=== PATIENT | female | born 1940 | race Caucasian/White ===

== ENCOUNTER 2018-03-21 17:34 | Emergency (ER) | payer OTHER ==
[~2018-03-21] VITALS: Ht 152.4 cm; Wt 57.2 kg
[~2018-03-21 17:34] MED LIST: AVALIDE 150/12.1 TAB PO; BACTROBAN22 GM TP; CARDIZEM CD240 MG; CIPRO500 MG PO; IRBESARTAN-HCT1 EACH; METRONIDAZOLE500 MG PO; SINGULAIR 10MG10 MG PO; TRAMADOL HCL-AP1 TAB PO; ULTRAM50 MG PO; ZANTAC300 MG PO; [UNRECOGNIZED DRUG - OTHER] PO
[2018-03-21] MEDS ORDERED: AVALIDE 300-121 EACH (17:56)
[2018-03-21] MEDS ORDERED: PENTOXIFYLLINE400 MG (17:57)
[2018-03-21] MEDS ORDERED: ZANTAC300 MG (17:57)
[2018-03-21] MEDS ORDERED: PROTONIX20 MG (17:57)
== END 2018-03-22 17:14 | disposition home or self-care (01) ==
LOC: ER 17:34
DX: M25.561 Pain in right knee (principal)

== ENCOUNTER → 2018-06-24 | Emergency (ER) | payer OTHER ==
[~2018-06-24] VITALS: Ht 152.4 cm; Wt 77.1 kg
[~2018-06-24] MED LIST changes: +AVALIDE 300-121 EACH; +PENTOXIFYLLINE400 MG; +PROTONIX20 MG; +ZANTAC300 MG
== END | disposition home or self-care (01) ==
LOC: ER 13:28
DX: K57.32 Diverticulitis of large intestine without perforation or abscess without bleeding (principal); M54.89 Other dorsalgia

== ENCOUNTER 2018-06-26 14:55 | Inpatient (IN) | payer OTHER ==
[~2018-06-26] VITALS: Ht 152.4 cm; Wt 72.6 kg
== END 2018-07-03 16:22 | disposition home or self-care (01) | DRG 392 ==
LOC: ER 14:55 → SURH 06-27 09:57 → SEC-K 06-27 09:57 → SURG 06-27 16:07 → SURH 06-27 17:54
PROVIDERS: ADMIT Internal Medicine
DX: K57.32 Diverticulitis of large intestine without perforation or abscess without bleeding (principal); N39.0 Urinary tract infection, site not specified; L02.413 Cutaneous abscess of right upper limb; E86.0 Dehydration; I10 Essential (primary) hypertension; N36.41 Hypermobility of urethra; R63.0 Anorexia; D63.8 Anemia in other chronic diseases classified elsewhere; J03.80 Acute tonsillitis due to other specified organisms; E87.8 Other disorders of electrolyte and fluid balance, not elsewhere classified; Z88.0 Allergy status to penicillin; Z88.6 Allergy status to analgesic agent; Z88.2 Allergy status to sulfonamides

== ENCOUNTER 2019-05-15 15:10 | Emergency (ER) | payer OTHER ==
[~2019-05-15] VITALS: Ht 152.4 cm; Wt 72.6 kg
== END 2019-05-15 19:58 | disposition home or self-care (01) ==
LOC: ER 15:10
DX: B34.9 Viral infection, unspecified (principal)

== ENCOUNTER 2020-06-28 11:43 | Emergency (ER) | payer OTHER ==
[~2020-06-28] VITALS: Ht 152.4 cm; Wt 72.6 kg
[2020-06-28] MEDS ORDERED: HYDROCHLOROTH12.5 MG PO (11:52)
== END 2020-06-28 14:27 | disposition home or self-care (01) ==
LOC: ER 11:43
DX: S80.02XA Contusion of left knee, initial encounter (principal); S80.01XA Contusion of right knee, initial encounter; S40.012A Contusion of left shoulder, initial encounter; W18.39XA Other fall on same level, initial encounter; Y93.89 Activity, other specified; Y92.69 Other specified industrial and construction area as the place of occurrence of the external cause; Y99.8 Other external cause status

== ENCOUNTER 2020-08-05 17:08 | Emergency (ER) | payer OTHER ==
[~2020-08-05] VITALS: Ht 152.4 cm; Wt 72.6 kg
[~2020-08-05 17:08] MED LIST changes: +HYDROCHLOROTH12.5 MG PO
== END 2020-08-05 20:49 | disposition home or self-care (01) ==
LOC: ER 17:08
DX: R53.81 Other malaise (principal); R50.83 Postvaccination fever; T50.B95A Adverse effect of other viral vaccines, initial encounter; Y92.89 Other specified places as the place of occurrence of the external cause

== ENCOUNTER 2020-12-04 18:45 | Emergency (ER) | payer OTHER ==
[~2020-12-04] VITALS: Ht 152.4 cm; Wt 68.0 kg
[2020-12-05] MEDS ORDERED: MACROBID 100 M100 MG PO (02:39)
[2020-12-05] MEDS ORDERED: PEPCID40 MG PO (02:39)
== END 2020-12-05 02:54 | disposition home or self-care (01) ==
LOC: ER 18:45
DX: N39.0 Urinary tract infection, site not specified (principal); K57.30 Diverticulosis of large intestine without perforation or abscess without bleeding; R10.2 Pelvic and perineal pain; R10.12 Left upper quadrant pain

== ENCOUNTER 2021-08-14 13:00 | Emergency (ER) | payer OTHER ==
[~2021-08-14] VITALS: Ht 152.4 cm; Wt 64.4 kg
[~2021-08-14 13:00] MED LIST changes: +MACROBID 100 M100 MG PO; +PEPCID40 MG PO
== END 2021-08-14 18:20 | disposition home or self-care (01) ==
LOC: ER 13:00
DX: S49.92XA Unspecified injury of left shoulder and upper arm, initial encounter (principal); W19.XXXA Unspecified fall, initial encounter; Y93.9 Activity, unspecified; Y92.512 Supermarket, store or market as the place of occurrence of the external cause; S79.912A Unspecified injury of left hip, initial encounter; S89.92XA Unspecified injury of left lower leg, initial encounter

== ENCOUNTER 2025-05-15 12:26 | Emergency (ER) | payer OTHER ==
[~2025-05-15] VITALS: Ht 170.2 cm; Wt 63.5 kg
[2025-05-15] MEDS ORDERED: 0.9 % SODIUM CHLORIDE 1,000 ML IV SCH (16:00)
[2025-05-15] MEDS ORDERED: CETIRIZINE HCL 10 MG TABLET PO ONE (16:00)
[2025-05-15] MEDS ORDERED: IPRATROPIUM BROMIDE 0.5 MG/2.5 ML AMPUL.NEB IH ONE (16:00)
[2025-05-15] MEDS ORDERED: GUAIFENESIN 200 MG/10 ML BLIST.PACK PO ONE (16:00)
[2025-05-15 16:39] LABS: BASO % 1.2 % (0.1-1.2); EOS # 0.29 (0.04-0.54); EOS % 7.1 % (0.7-7.0); LYMPH # 1.93 (1.18-3.74); LYMPH % 47.4 % (19.3-53.1); MEAN PLATELET VOLUME 9.70 fl (9.4-12.4); MONO # 0.70 (0.24-0.82); NEUT # 1.09 (1.56-6.13); NEUT % 26.9 % (34.0-71.1); RED CELL DISTRIBUTION WIDTH 13.8 % (11.6-14.4)
[2025-05-15 16:42] LABS: MONO % 17.2 % (4.7-12.5)
[2025-05-15 16:47] LABS: ERYTHROCYTE SEDIMENTATION RATE 77 mm/hr (0-30)
[2025-05-15 17:06] LABS: ALT/SGPT 25.0 U/L (12-78); AST/SGOT 32.0 U/L (15-37); BILIRUBIN TOTAL 0.3 mg/dL (0.3-1.2); BUN CREA RATIO 22.0 (7.0-25.0); CREATININE SERUM 0.82 mg/dL (0.55-1.02); GFR 66.1; GLOBULINA 4.4 G/DL (2.4-3.5); GLUCOSE FASTING 90.0 mg/dL (65-100); OSMOLALITY SERUM 273.0 MOSM/KG (275-295)
[2025-05-15 17:54] LABS: COVID-19 AG NEGATIVE (NEGATIVE)
[2025-05-15] MEDS ORDERED: MUCINEX D ER 11 EACH PO (18:36)
[2025-05-15] MEDS ORDERED: INTESTINEX680 M1 PO (18:36)
[2025-05-15] MEDS ORDERED: OSELTAMIVIR PHO30 MG PO (18:36)
[2025-05-15] MEDS ORDERED: MEDROLPACK PO (18:36)
[2025-05-15] MEDS ORDERED: PEPCID AC20 MG PO (18:36)
== END 2025-05-15 22:07 | disposition home or self-care (01) ==
LOC: ER 12:26
PROVIDERS: Student in an Organized Health Care Education/Training Program
DX: J10.1 Influenza due to other identified influenza virus with other respiratory manifestations (principal); Z20.822 Contact with and (suspected) exposure to COVID-19; I10 Essential (primary) hypertension; Z88.6 Allergy status to analgesic agent; Z88.0 Allergy status to penicillin; Z88.2 Allergy status to sulfonamides
CPT/HCPCS: 36415; 94640; 96365; 99283; J7030